=== PATIENT | male | born 1945 | race Caucasian/White ===

== ENCOUNTER 2018-08-14 12:02 | Observation (INO) | payer MEDICARE ==
[2018-08-14] MEDS ORDERED: NORMAL SALINE 1000 ML 1,000 ML IV ONE (12:26)
[2018-08-14] MEDS ORDERED: ONDANSETRON HCL INJ/PF 4 MG/2 ML SDV IV ONE (12:27)
--- NOTE | 2018-08-14 12:34 | ER Document Report ---
ED General - General Chief Complaint: Abdominal Pain Stated Complaint: STOMACH PAIN Time Seen by Provider: 08/14/18 12:24 Mode of Arrival: Ambulatory Information source: Patient TRAVEL OUTSIDE OF THE [place] IN LAST 30 DAYS: No - HPI Notes: Patient is a 73 yr old male that presents to the emergency department for chief complaint of bloody stool for the last 5 weeks, has been constant. Patient has been seen by primary care provider, Dr. Mauricio yesterday for blood work and stool culture was done however patient has not received her results. Patient states that today started with lower abdominal pain. Denies any fevers or chills. Denies any recent travel, new medications or new foods. Patient denies any history of Crohn's disease, IBS, anemia, gastric ulcers gastric bleeds. Denies any melena, states macarena bloody stool stools intermittently. Has tried [id number] Imodium without relief. Denies any vomiting, states he did feel nauseous this morning. Denies fevers, chills, chest pain,palpitations, shortness of breath, dyspnea, nausea, vomiting,abdominal pain, hematuria,blurred vision, double vision, loss of vision, speech changes, LH, dizziness, syncope, headaches, wheezing, ST, URI, neck pain, weakness, bowel or bladder dysfunction, saddle anesthesia, numbness or tingling in bilateral upper or lower extremities equally, muscle paralysis, weakness in bilateral upper or lower extremities equally or rash. - Related Data Allergies/Adverse Reactions: Penicillins Allergy (Verified 08/14/18 12:04) Past Medical History - General Information source: Patient - Social History Smoking Status: Unknown if Ever Smoked Chew tobacco use (# tins/day): No Frequency of alcohol use: None Drug Abuse: None Family History: Reviewed & Not Pertinent Patient has suicidal ideation: No Patient has homicidal ideation: No Renal/ Medical History: Denies: Hx Peritoneal Dialysis GI Medical History: Reports: Hx Gastroesophageal Reflux Disease Past Surgical History: Reports: Hx Abdominal Surgery - hernia, Hx Orthopedic Surgery Review of Systems - Review of Systems Constitutional: No symptoms reported EENT: No symptoms reported Cardiovascular: No symptoms reported Respiratory: No symptoms reported Gastrointestinal: See HPI Genitourinary: No symptoms reported Male Genitourinary: No symptoms reported Musculoskeletal: No symptoms reported Skin: No symptoms reported Hematologic/Lymphatic: No symptoms reported Neurological/Psychological: No symptoms reported Physical Exam - Vital signs Vitals: Temp Pulse Resp BP Pulse Ox 97.6 F 70 18 132/82 H 99 08/14/18 12:09 08/14/18 12:09 08/14/18 12:09 08/14/18 12:09 08/14/18 12:09 - Notes Notes: PHYSICAL EXAMINATION: GENERAL: Well-appearing, well-nourished and in no acute distress. HEAD: Atraumatic, normocephalic. EYES: Pupils equal round and reactive to light, extraocular movements intact, sclera anicteric, conjunctiva are normal. ENT: Nares patent, oropharynx clear without exudates. Moist mucous membranes. NECK: Normal range of motion, supple without lymphadenopathy LUNGS: Breath sounds clear to auscultation bilaterally and equal. No wheezes rales or rhonchi. HEART: Regular rate and rhythm without murmurs ABDOMEN: Soft, generalized tenderness, nondistended abdomen. No guarding, no rebound. No masses appreciated. Musculoskeletal: Normal range of motion, no pitting or edema. No cyanosis. NEUROLOGICAL: Cranial nerves grossly intact. Normal speech, normal gait. Normal sensory, motor exams PSYCH: Normal mood, normal affect. SKIN: Warm, Dry, normal turgor, no rashes or lesions noted. Course - Re-evaluation Re-evalutation: 08/14/18 18:06 73-year-old male presents the ED afebrile vitals stable no distress for evaluation of bloody stool for the last 5 weeks, IV hydration initiated. Patient given Zofran for nausea, CBC shows a slight leukocytosis, no anemia, CMP unremarkable, CT abdomen pelvis does show diffuse colitis, stool studies shows that patient does have C. difficile. Patient slightly dehydrated with ketones in urinalysis. Discussed with Ginny Baxter, [employer] will admit patient for diffuse colitis and C. difficile 1500. Discuss admission with patient, requires IV antibiotics and IV hydration. All questions and concerns answered by this provider. Patient remained stable throughout duration of ER visit. Patient will be admitted to medical service on [facility] floor. Patient and agreeable with this plan of care. - Vital Signs Vital signs: Temp Pulse Resp BP Pulse Ox 98.2 F 71 16 143/75 H 95 08/14/18 17:15 08/14/18 17:15 08/14/18 17:15 08/14/18 17:15 08/14/18 17:15 - Laboratory Result Diagrams: 08/14/18 12:40 08/14/18 12:40 Laboratory results interpreted by me: 08/14/18 08/14/18 08/14/18 12:40 12:40 12:40 WBC 13.5 H Seg Neutrophils % 83.0 H Lymphocytes % 5.4 L Absolute Neutrophils 11.2 H ALT 14 L Urine Ketones TRACE H Urine Blood SMALL H Urine Ascorbic Acid 40 H Stool for White Cells 08/14/18 14:20 WBC Seg Neutrophils % Lymphocytes % Absolute Neutrophils ALT Urine Ketones Urine Blood Urine Ascorbic Acid Stool for White Cells MANY H Discharge - Discharge Clinical Impression: Colitis, C. difficile colitis Condition: Stable Disposition: ADMITTED INPATIENT Admitting Provider: Ginny Lantigua NP Unit Admitted: Medical Floor
[2018-08-14 13:10] LABS: ABSOLUTE EOSINOPHILS # (AUTO) 0.4 10^3/uL (0.0-0.6); ABSOLUTE LYMPHOCYTES (AUTO) 0.7 10^3/uL (0.5-4.7); ABSOLUTE MONOCYTES (AUTO) 1.1 10^3/uL (0.1-1.4); ABSOLUTE NEUT (AUTO) 11.2 10^3/uL (1.7-8.2); BASOPHILS % (AUTO) 0.1 % (0-2); EOSINOPHILS % (AUTO) 3.2 % (0-6); HEMATOCRIT 47.5 % (37.9-51.0); LYMPHOCYTES % (AUTO) 5.4 % (13-45); MEAN CORPUSCULAR HEMOGLOBIN 28.9 pg (27.0-33.4); MEAN CORPUSCULAR HGB CONC 33.7 g/dL (32.0-36.0); MEAN CORPUSCULAR VOLUME 86 fl (80-97); MONOCYTES % (AUTO) 8.3 % (3-13); PLATELET COUNT 420 10^3/uL (150-450); RED BLOOD COUNT 5.54 10^6/uL (4.35-5.55); RED CELL DISTRIBUTION WIDTH 13.8 % (11.5-14.0); TOTAL CELLS COUNTED % (AUTO) 100 %; WHITE BLOOD COUNT 13.5 10^3/uL (4.0-10.5)
[2018-08-14 13:15] LABS: APPEARANCE,URINE CLEAR; BILIRUBIN,URINE NEGATIVE (NEGATIVE); CALCIUM OXALATE CRYSTALS,URINE FEW /HPF; GLUCOSE, URINE NEGATIVE (NEGATIVE); KETONES,URINE TRACE mg/dL (NEGATIVE); LEUKOCYTE ESTERASE,URINE NEGATIVE (NEGATIVE); NITRITE,URINE NEGATIVE (NEGATIVE); PROTEIN,URINE NEGATIVE (NEGATIVE); URINE SPECIFIC GRAVITY 1.027; UROBILINOGEN,URINE NEGATIVE mg/dL (<2.0)
[2018-08-14 13:16] LABS: COLOR,URINE YELLOW
[2018-08-14 13:31] LABS: ALANINE AMINOTRANSFERASE 14 U/L (21-72); ALBUMIN 4.3 g/dL (3.5-5.0); ALKALINE PHOSPHATASE 102 U/L (38-126); ANION GAP 8 (5-19); ASPARTATE AMINO TRANSFERASE 25 U/L (17-59); BILIRUBIN,DIRECT 0.3 mg/dL (0.0-0.4); BILIRUBIN,TOTAL 0.6 mg/dL (0.2-1.3); BLOOD UREA NITROGEN 16 mg/dL (7-20); CALCIUM 9.5 mg/dL (8.4-10.2); CARBON DIOXIDE 30 mmol/L (22-30); CHLORIDE 103 mmol/L (98-107); GLUCOSE 110 mg/dL (75-110); LIPASE 99.6 U/L (23-300); POTASSIUM 4.4 mmol/L (3.6-5.0); SODIUM 141.3 mmol/L (137-145); TOTAL PROTEIN 7.7 g/dL (6.3-8.2)
[2018-08-14] MEDS ORDERED: NORMAL SALINE 1000 ML 1,000 ML IV PRN (13:35)
--- NOTE | 2018-08-14 15:17 | RADIOLOGY REPORT (SQ) ---
EXAM DESCRIPTION: CT ABD/PELVIS WITH IV ONLY COMPLETED DATE/TIME: 08/14/2018 2:56 pm REASON FOR STUDY: RLQ/LLQ abd pain with bloody stool COMPARISON: None. TECHNIQUE: CT scan of the abdomen and pelvis performed using helical scanning technique with dynamic intravenous contrast injection. No oral contrast. Images reviewed with lung, soft tissue, and bone windows. Reconstructed coronal and sagittal MPR images reviewed. Delayed images for evaluation of the urinary system also acquired. All images stored on PACS. All CT scanners at this facility use dose modulation, iterative reconstruction, and/or weight based d osing when appropriate to reduce radiation dose to as low as reasonably achievable (ALARA). [facility]: Dose Right [facility]: CareDose [facility]: Dose Right [facility]: Teradose 4D [facility]: [place] CONTRAST TYPE AND DOSE: contrast/concentration: Isovue 350.00 mg/ml; Total Contrast Delivered: 91.0 ml; Total Saline Delivered: 70.0 ml RENAL FUNCTION: Creatinine 1.1 RADIATION DOSE: CT Rad equipment meets quality standard of care and radiation dose reduction techniq ues were employed. CTDIvol: 7.7 - 10.9 mGy. DLP: 1034 mGy-cm.. LIMITATIONS: None. FINDINGS: There is diffuse colon wall thickening and luminal narrowing throughout the colon, most pr onounced along the splenic flexure, descending and sigmoid colon. Colitis could be infectious or inf lammatory. Normal contrast enhancement of the SMA and SMV. No free intraperitoneal air or fluid or adjacent abscess. No bowel obstruction. LOWER CHEST: No significant findings. No nodules or infiltrates. LIVER: Normal size. 1 cm probable hemangioma posterior right lobe liver. No dilated ducts. SPLEEN: Normal size. No focal lesions. PANCREAS: No masses. No significant calcifications. No adjacent inflammation or peripancreatic fluid collections. Pancreatic duct not dilated. GALLBLADDER: No identified stones by CT criteria. No inflammatory changes to suggest cholecystitis. ADRENAL GLANDS: No significant masses or asymmetry. RIGHT KIDNEY AND URETER: No solid masses. No significant calcifications. No hydronephrosis or hyd roureter. LEFT KIDNEY AND URETER: No solid masses. 1.5 cm cyst left upper pole kidney No significant calcifica tions. No hydronephrosis or hydroureter. AORTA AND VESSELS: No aneurysm. No dissection. Renal arteries, SMA, celiac without stenosis. RETROPERITONEUM: No retroperitoneal adenopathy, hemorrhage or masses. BOWEL AND PERITONEAL CAVITY: Diffuse colitis with colon wall thickening, luminal narrowing and surrou nding inflammation in the pericolic fat. This is most pronounced along the descending and sigmoid co micky. This could be infectious or inflammatory. Ischemic colitis is possible but considered less lik rui, given good enhancement of the superior mesenteric artery and vein. No free intraperitoneal air or fluid. No CT signs of bowel obstruction. APPENDIX: Normal. PELVIS: No mass. No free fluid. Normal bladder. ABDOMINAL WALL: No masses. No hernias. BONES: No significant or acute findings. OTHER: No other significant finding. IMPRESSION: Diffuse colitis TECHNICAL DOCUMENTATION: JOB ID: [id number] Quality ID # [id number]: Final reports with documentation of one or more dose reduction techniques (e.g., Au tomated exposure control, adjustment of the mA and/or kV according to patient size, use of iterative reconstruction technique) 2010 [employer]- All Rights Reserved Reading location - IP/workstation name: [email or web address]
[2018-08-14] MEDS ORDERED: MAG HYDROX/AL HYDROX/SIMETH SUSP 30 ML UDCUP PO PRN (16:24)
[2018-08-14] MEDS ORDERED: ONDANSETRON HCL INJ/PF 4 MG/2 ML SDV IV PRN (16:24)
[2018-08-14] MEDS ORDERED: OXYCODONE-ACETAMINOPHEN 5-325 MG TABLET PO PRN (16:24)
[2018-08-14] MEDS ORDERED: ACETAMINOPHEN 325 MG TABLET PO PRN (16:24)
[2018-08-14] MEDS ORDERED: PROMETHAZINE HCL INJ 25 MG/1 ML VIAL IV PRN (16:24)
--- NOTE | 2018-08-14 17:19 | PDOC H&P ---
History of Present Illness Patient complains of: diarrhea History of Present Illness: QUINTON JACKSON JR is a 73 year old male without significant past medical history who presents today with a complaint of 5 weeks of diarrhea; 4-5 bouts daily, now associated with generalized abdominal discomfort and nausea without emesis. He denies fever, chills. He does report poor appetite and approximately 7 pound unintentional weight loss over the previous month. He denies previous C. difficile infection or recent antibiotic use. No known sick contacts. Evaluation in the emergency department essentially unremarkable other than leukocytosis (WBCs 13.5) and trace ketones and trace blood and urine. Stool studies do show occult blood, large WBCs, and positive C. difficile PCR. CT of the abdomen and pelvis reveals diffuse colitis. He is referred to the hospitalist service for admission and management of C. difficile colitis. Past Medical History Cardiac Medical History: Reports: None Pulmonary Medical History: Reports: None EENT Medical History: Reports: None Neurological Medical History: Reports: None Endocrine Medical History: Reports: None Renal/ Medical History: Reports: None Malignancy Medical History: Reports: None GI Medical History: Reports: Gastroesophageal Reflux Disease Musculoskeltal Medical History: Reports: None Skin Medical History: Reports: None Psychiatric Medical History: Reports: None Traumatic Medical History: Reports: None Hematology: Reports: None Infectious Medical History: Reports: None Past Surgical History Past Surgical History: Reports: Orthopedic Surgery Social History Information Source: Patient Lives with: Family Smoking Status: Never Smoker Frequency of Alcohol Use: Rare Hx Recreational Drug Use: No Hx Prescription Drug Abuse: No - Advance Directive Resuscitation Status: Full Code Family History Family History: Reviewed & Not Pertinent Parental Family History Reviewed: Yes Children Family History Reviewed: Yes Sibling(s) Family History Reviewed.: Yes Medication/Allergy Allergies/Adverse Reactions: Penicillins Allergy (Verified 08/14/18 12:04) Review of Systems Constitutional: PRESENT: weight loss. ABSENT: chills, fever(s), headache(s), weight gain Eyes: ABSENT: visual disturbances Ears: ABSENT: hearing changes Cardiovascular: ABSENT: chest pain, dyspnea on exertion, edema, orthropnea, palpitations Respiratory: ABSENT: cough, hemoptysis Gastrointestinal: PRESENT: abdominal pain, diarrhea, nausea. ABSENT: constipation, hematemesis, hematochezia, vomiting Genitourinary: ABSENT: dysuria, hematuria Musculoskeletal: ABSENT: joint swelling Integumentary: ABSENT: rash, wounds Neurological: ABSENT: abnormal gait, abnormal speech, confusion, dizziness, focal weakness, syncope Psychiatric: ABSENT: anxiety, depression, homidical ideation, suicidal ideation Endocrine: ABSENT: cold intolerance, heat intolerance, polydipsia, polyuria Hematologic/Lymphatic: ABSENT: easy bleeding, easy bruising Physical Exam Vital Signs: Temp Pulse Resp BP Pulse Ox 97.6 F 70 18 132/82 H 99 08/14/18 12:09 08/14/18 12:09 08/14/18 12:09 08/14/18 12:09 08/14/18 12:09 Intake & Output 08/13/18 08/14/18 08/15/18 06:59 06:59 06:59 Intake Total 1999 Balance 1999 Weight 80.7 kg General appearance: PRESENT: no acute distress, cooperative, well-developed, well-nourished Head exam: PRESENT: atraumatic, normocephalic Eye exam: PRESENT: conjunctiva pink, EOMI, PERRLA. ABSENT: scleral icterus Ear exam: PRESENT: normal external ear exam Mouth exam: PRESENT: moist, tongue midline Neck exam: ABSENT: carotid bruit, JVD, lymphadenopathy, thyromegaly Respiratory exam: PRESENT: clear to auscultation natasha. ABSENT: rales, rhonchi, wheezes Cardiovascular exam: PRESENT: RRR. ABSENT: diastolic murmur, rubs, systolic murmur Pulses: PRESENT: normal dorsalis pedis pul Vascular exam: PRESENT: normal capillary refill GI/Abdominal exam: PRESENT: normal bowel sounds, soft, tenderness - Generalized. ABSENT: distended, guarding, mass, organolmegaly, rebound Rectal exam: PRESENT: deferred Extremities exam: PRESENT: full ROM. ABSENT: calf tenderness, clubbing, pedal edema Musculoskeletal exam: PRESENT: ambulatory Neurological exam: PRESENT: alert, awake, oriented to person, oriented to place, oriented to time, oriented to situation, CN II-XII grossly intact. ABSENT: motor sensory deficit Psychiatric exam: PRESENT: appropriate affect, normal mood. ABSENT: homicidal ideation, suicidal ideation Skin exam: PRESENT: dry, intact, warm. ABSENT: cyanosis, rash Results Laboratory Results: 08/14/18 12:40 08/14/18 12:40 08/14/18 08/14/18 08/14/18 12:40 12:40 12:40 WBC 13.5 H RBC 5.54 Hgb 16.0 Hct 47.5 MCV 86 MCH 28.9 MCHC 33.7 RDW 13.8 Plt Count 420 Seg Neutrophils % 83.0 H Lymphocytes % 5.4 L Monocytes % 8.3 Eosinophils % 3.2 Basophils % 0.1 Absolute Neutrophils 11.2 H Absolute Lymphocytes 0.7 Absolute Monocytes 1.1 Absolute Eosinophils 0.4 Absolute Basophils 0.0 Sodium 141.3 Potassium 4.4 Chloride 103 Carbon Dioxide 30 Anion Gap 8 BUN 16 Creatinine 1.09 Est GFR ( Amer) > 60 Est GFR (Non-Af Amer) > 60 Glucose 110 Calcium 9.5 Total Bilirubin 0.6 AST 25 ALT 14 L Alkaline Phosphatase 102 Total Protein 7.7 Albumin 4.3 Lipase 99.6 Urine Color YELLOW Urine Appearance CLEAR Urine pH 5.0 Ur Specific [place] 1.027 Urine Protein NEGATIVE Urine Glucose (UA) NEGATIVE Urine Ketones TRACE H Urine Blood SMALL H Urine Nitrite NEGATIVE Ur Leukocyte Esterase NEGATIVE Urine WBC (Auto) 8 Urine RBC (Auto) 5 Stool Occult Blood Stool for White Cells 08/14/18 08/14/18 14:20 14:20 WBC RBC Hgb Hct MCV MCH MCHC RDW Plt Count Seg Neutrophils % Lymphocytes % Monocytes % Eosinophils % Basophils % Absolute Neutrophils Absolute Lymphocytes Absolute Monocytes Absolute Eosinophils Absolute Basophils Sodium Potassium Chloride Carbon Dioxide Anion Gap BUN Creatinine Est GFR ( Amer) Est GFR (Non-Af Amer) Glucose Calcium Total Bilirubin AST ALT Alkaline Phosphatase Total Protein Albumin Lipase Urine Color Urine Appearance Urine pH Ur Specific [place] Urine Protein Urine Glucose (UA) Urine Ketones Urine Blood Urine Nitrite Ur Leukocyte Esterase Urine WBC (Auto) Urine RBC (Auto) Stool Occult Blood POSITIVE Stool for White Cells MANY H Impressions: Abdomen/Pelvis CT 08/14/18 12:25 IMPRESSION: Diffuse colitis Assessment and Plan - Diagnosis (1) C. difficile colitis Is this a current diagnosis for this admission?: Yes Plan: C. difficile PCR is positive. Stool positive for many WBCs and occult blood. Stool culture pending. Blood culture pending. Patient is admitted to the medical floor. He will be provided gentle IV fluids overnight. Start p.o. vancomycin 125 mg every 6 hours. Diet as tolerated. (2) Leukocytosis Is this a current diagnosis for this admission?: Yes Plan: Secondary to #1. Blood, urine, stool cultures pending. Continue p.o. vancomycin as above. (3) Nausea Is this a current diagnosis for this admission?: Yes Plan: Secondary to #1. Continue gentle IV fluids. Antiemetics as needed. Diet as tolerated. (4) Ketonuria Is this a current diagnosis for this admission?: Yes Plan: Secondary to dehydration/poor p.o. intake and associated weight loss. Urine is positive for ketones and specific gravity of 1.027. Anion gap is closed, bicarb 30. Vital signs stable. Continue gentle IV fluids. Diet as tolerated. (5) GERD (gastroesophageal reflux disease) Is this a current diagnosis for this admission?: Yes Plan: Pepcid twice daily. - Time Time Spent with patient: 35 or more minutes Medications reviewed and adjusted accordingly: Yes Anticipated discharge: Home Within: within 24 hours
[2018-08-14] MEDS: NORMAL SALINE 1000 ML 1,000 ML IV PRN (18:30)
[2018-08-14] MEDS: VANCOMYCIN HCL INJ 500 MG VIAL PO SCH ×2 (18:51→23:36)
[2018-08-14] MEDS: FAMOTIDINE 20 MG TABLET PO SCH (23:37)
[2018-08-14] MEDS: HEPARIN SOD (PORCINE) 5,000 UNIT/ML 1 ML SYRINGE SUBCUT SCH (23:37)
[2018-08-15] MEDS: NORMAL SALINE 1000 ML 1,000 ML IV PRN (02:18)
[2018-08-15 04:20] LABS: BLOOD UREA NITROGEN 12 mg/dL (7-20); CALCIUM 8.2 mg/dL (8.4-10.2); GLUCOSE 78 mg/dL (75-110); POTASSIUM 4.5 mmol/L (3.6-5.0)
[2018-08-15 04:25] LABS: CARBON DIOXIDE 28 mmol/L (22-30); CHLORIDE 108 mmol/L (98-107); SODIUM 139.7 mmol/L (137-145)
[2018-08-15 04:32] LABS: ANION GAP 4 (5-19)
[2018-08-15] MEDS: VANCOMYCIN HCL INJ 500 MG VIAL PO SCH ×2 (05:33→11:14)
[2018-08-15] MEDS: HEPARIN SOD (PORCINE) 5,000 UNIT/ML 1 ML SYRINGE SUBCUT SCH ×2 (05:33→14:03)
[2018-08-15 07:14] LABS: ABSOLUTE EOSINOPHILS # (AUTO) 0.6 10^3/uL (0.0-0.6); ABSOLUTE LYMPHOCYTES (AUTO) 1.1 10^3/uL (0.5-4.7); ABSOLUTE MONOCYTES (AUTO) 0.7 10^3/uL (0.1-1.4); ABSOLUTE NEUT (AUTO) 4.2 10^3/uL (1.7-8.2); BASOPHILS % (AUTO) 0.5 % (0-2); EOSINOPHILS % (AUTO) 9.4 % (0-6); HEMATOCRIT 37.6 % (37.9-51.0); LYMPHOCYTES % (AUTO) 16.4 % (13-45); MEAN CORPUSCULAR HEMOGLOBIN 29.2 pg (27.0-33.4); MEAN CORPUSCULAR HGB CONC 34.5 g/dL (32.0-36.0); MEAN CORPUSCULAR VOLUME 85 fl (80-97); MONOCYTES % (AUTO) 10.9 % (3-13); PLATELET COUNT 296 10^3/uL (150-450); RED BLOOD COUNT 4.43 10^6/uL (4.35-5.55); RED CELL DISTRIBUTION WIDTH 13.8 % (11.5-14.0); SEGMENTED NEUTROPHILS % (AUTO) 62.8 % (42-78); TOTAL CELLS COUNTED % (AUTO) 100 %; WHITE BLOOD COUNT 6.6 10^3/uL (4.0-10.5)
[2018-08-15 07:18] LABS: HEMOGLOBIN 12.9 g/dL (13.5-17.0)
[2018-08-15] MEDS: FAMOTIDINE 20 MG TABLET PO SCH (09:37)
[2018-08-15 14:22] VITALS: BP 138/76
--- NOTE | 2018-08-21 13:38 | PDOC DISCHARGE SUMMARY ---
General - Admit/Disc Date/PCP Admission Date/Primary Care Provider: 08/14/18 16:24 Discharge Date: 08/15/18 - Discharge Diagnosis (1) C. difficile colitis Is this a current diagnosis for this admission?: Yes Summary: Ruled out. C. difficile PCR is positive. Stool positive for many WBCs and occult blood. Stool culture negative Blood culture negative C. diff Toxin A/B negative Patient was admitted to the medical floor and supported with gentle IV fluids overnight. He was started p.o. vancomycin 125 mg every 6 hours and provided a prescription to complete a full 10 day course of therapy. His symptoms rapidly improved and he requested to be discharged the following day. Patient was called following return of stool studies; he was informed all testing was negative. Recommended he begin dietary elimination (lactose, gluten) and to follow up with GI for further assistance. (2) Leukocytosis Is this a current diagnosis for this admission?: Yes Summary: Resolved. Unclear etiology. All cultures are negative. Antibiotics as above. (3) Nausea Is this a current diagnosis for this admission?: Yes Summary: Resolved; now tolerating a regular diet. (4) Ketonuria Is this a current diagnosis for this admission?: Yes Summary: Secondary to dehydration/poor p.o. intake and associated weight loss. Urine is positive for ketones and specific gravity of 1.027. Anion gap is trina sed, bicarb 30. Vital signs stable. He was provided gentle IVF overnight. Now with adequate p.o. intake. (5) GERD (gastroesophageal reflux disease) Is this a current diagnosis for this admission?: Yes Summary: Pepcid twice daily. (6) Diarrhea Is this a current diagnosis for this admission?: Yes Summary: Present for several months. Unclear etiology. CT ABD/Pelvis is benign. Stool studies are negative. Recommend patient begin dietary elimination and follow up with GI for further evaluation. Would benefit from colonoscopy. - Additional Information Resuscitation Status: Full Code Discharge Diet: As Tolerated, Regular Discharge Activity: Activity As Tolerated Prescriptions: Ondansetron [Zofran Odt 4 mg Tablet] 1 - 2 tab PO Q4HP PRN #10 tab.rapdis PRN Reason: For Nausea/Vomiting Oxycodone HCl/Acetaminophen [Percocet 5-325 mg Tablet] 1 tab PO Q4HP PRN #10 tablet PRN Reason: Vancomycin HCl 125 mg PO Q6H #40 capsule Home Medications: Omeprazole 20 mg PO [id number] 08/14/18 Acetaminophen [Tylenol 325 mg Tablet] 650 mg PO Q4HP PRN tablet 08/15/18 Ondansetron [Zofran Odt 4 mg Tablet] 1 - 2 tab PO Q4HP PRN #10 tab.rapdis 08/15/18 Oxycodone HCl/Acetaminophen [Percocet 5-325 mg Tablet] 1 tab PO Q4HP PRN #10 tablet 08/15/18 Vancomycin HCl 125 mg PO Q6H #40 capsule 08/15/18 History of Present Illness History of Present Illness: QUINTON JACKSON JR is a 73 year old male without significant past medical history who presents today with a complaint of 5 weeks of diarrhea; 4-5 bouts daily, now associated with generalized abdominal discomfort and nausea without emesis. He denies fever, chills. He does report poor appetite and approximately 7 pound unintentional weight loss over the previous month. He denies previous C. difficile infection or recent antibiotic use. No known sick contacts. Evaluation in the emergency department essentially unremarkable other than leukocytosis (WBCs 13.5) and trace ketones and trace blood and urine. Stool studies do show occult blood, large WBCs, and positive C. difficile PCR. CT of the abdomen and pelvis reveals diffuse colitis. He is referred to the hospitalist service for admission and management of C. difficile colitis. Physical Exam Vital Signs: Temp Pulse Resp BP Pulse Ox 98.8 F 65 17 138/76 H 98 08/15/18 14:21 08/15/18 14:21 08/15/18 14:21 08/15/18 14:21 08/15/18 14:21 General appearance: PRESENT: no acute distress, well-developed, well-nourished Head exam: PRESENT: atraumatic, normocephalic Eye exam: PRESENT: conjunctiva pink, EOMI, PERRLA. ABSENT: scleral icterus Ear exam: PRESENT: normal external ear exam Mouth exam: PRESENT: moist, tongue midline Neck exam: ABSENT: carotid bruit, JVD, lymphadenopathy, thyromegaly Respiratory exam: PRESENT: clear to auscultation natasha. ABSENT: rales, rhonchi, wheezes Cardiovascular exam: PRESENT: RRR. ABSENT: diastolic murmur, rubs, systolic murmur Pulses: PRESENT: normal dorsalis pedis pul Vascular exam: PRESENT: normal capillary refill GI/Abdominal exam: PRESENT: normal bowel sounds, soft. ABSENT: distended, guarding, mass, organolmegaly, rebound, tenderness Rectal exam: PRESENT: deferred Extremities exam: PRESENT: full ROM. ABSENT: calf tenderness, clubbing, pedal edema Neurological exam: PRESENT: alert, awake, oriented to person, oriented to place, oriented to time, oriented to situation, CN II-XII grossly intact. ABSENT: motor sensory deficit Psychiatric exam: PRESENT: appropriate affect, normal mood. ABSENT: homicidal ideation, suicidal ideation Skin exam: PRESENT: dry, intact, warm. ABSENT: cyanosis, rash Results Laboratory Results: 08/15/18 06:40 08/15/18 03:41 Impressions: Abdomen/Pelvis CT 08/14/18 12:25 IMPRESSION: Diffuse colitis Qualifiers - * PATIENT BEING DISCHARGED WITH ANY OF THE FOLLOWING DIAGNOSIS: No Acute Heart Failure - Is this a Heart Failure Patient?: No Plan Discharge Plan: Follow up with your primary care provider within 1 week. Complete your course of antibiotics; loose stools can continue after completing the antibiotic but should continue to improve over time. Seek medical attention if you develop abdominal pain, fever, blood in stools (more than slight streaking), increased frequency/volume of stools, or are unable to tolerate food/fluids. Return to the emergency department as needed for concerning symptoms. Patient was called upon finalization of stool cultures and C. diff Toxin A/B results; informed that all studies are negative. Patient was advised to consider dietary causes of his symptoms (lactose, gluten) and to follow up with established GI provider for further assistance. Time Spent: Greater than 30 Minutes
== END 2018-08-15 15:39 | disposition home or self-care (01) ==
LOC: ER 12:02 → EH 16:24 → INTOOBSV 16:24 → 5 17:37
PROVIDERS: ADMIT Internal Medicine; ATTEND Internal Medicine
DX: R19.5 Other fecal abnormalities (principal); D72.829 Elevated white blood cell count, unspecified; R11.0 Nausea; R82.4 Acetonuria; E86.0 Dehydration; R63.4 Abnormal weight loss; K21.9 Gastro-esophageal reflux disease without esophagitis; R19.7 Diarrhea, unspecified; R31.9 Hematuria, unspecified; R10.84 Generalized abdominal pain; K52.9 Noninfective gastroenteritis and colitis, unspecified
CPT/HCPCS: 99285; 96361; 96374; 36415 ×2; 87040; 87045; 87086; 89055; 87205; 83690; 85025 ×2; 82272; 80048; 80053; 81001; 87493; 87324; 74177; G0378 ×3; J1644 ×2; A9270 ×2; J2405; J3370 ×2; J7030 ×2